=== PATIENT | female | born 1995 | race Two or more races ===

== ENCOUNTER 2018-03-16 18:39 | Emergency (ER) | payer SELFPAY ==
[~2018-03-16] VITALS: Ht 162.6 cm; Wt 75.0 kg
[2018-03-16 18:45] VITALS: BP 115/61
[2018-03-16] MEDS ORDERED: SODIUM CHLORIDE 0.9% 1,000 ML IV ONE (19:11)
[2018-03-16] MEDS ORDERED: FAMOTIDINE 20MG/2ML VIAL IV ONE (19:15)
[2018-03-16] MEDS ORDERED: METHYLPREDNISOLONE SOD SUCC 125 MG/2 ML VIAL IV ONE (19:15)
[2018-03-16] MEDS ORDERED: DIPHENHYDRAMINE 50MG/ML VIAL IV ONE (19:15)
== END 2018-03-16 20:24 | disposition left against medical advice (07) ==
LOC: ER 18:39
DX: T78.49XA Other allergy, initial encounter (principal); X58.XXXA Exposure to other specified factors, initial encounter; Z91.018 Allergy to other foods
CPT/HCPCS: 96374; 96375; 99283; J1200; J2930; J3490; J7030